=== PATIENT | female | born 1960 | race Caucasian/White ===

== ENCOUNTER 2017-09-28 11:57 | Inpatient (IN) | payer OTHER ==
[~2017-09-28] VITALS: Ht 175.3 cm; Wt 108.8 kg
[2017-09-28 14:04] LABS: ALBUMIN 2.9 g/dL (3.4-5.0); ANION GAP 11 mmol/L (5-15); CHLORIDE 96 mmol/L (98-107)
[2017-09-28 14:09] LABS: ALANINE AMINOTRANSFERASE 154 U/L (12-78); ALKALINE PHOSPHATASE 564 U/L (45-117); BILIRUBIN,TOTAL 10.4 mg/dL (0.2-1.0); CREATININE 1.04 mg/dL (0.55-1.02); TOTAL PROTEIN 6.4 g/dL (6.4-8.2)
[2017-09-28 14:14] LABS: MEAN CORPUSCULAR HEMOGLOBIN 29.6 pg (27.0-34.8); MEAN CORPUSCULAR HGB CONC 34.3 g/dL (32.4-35.8); MEAN CORPUSCULAR VOLUME 86.2 fL (80-100); MEAN PLATELET VOLUME 9.2 fL (7.4-10.4); PLATELET COUNT 59 x10^3/uL (130-400); RED BLOOD COUNT 4.66 x10^6/uL (3.82-5.3); RED CELL DISTRIBUTION WIDTH 16.2 % (9.6-15.2)
[2017-09-28 14:15] LABS: MD YES
[2017-09-28 14:59] LABS: BAND#(MANUAL) 0.94 x10^3/uL; BANDS%(MANUAL) 4 % (0-7); LYMPH#(MANUAL) 4.45 x10^3/uL (1-3.4); LYMPHS% (MANUAL) 19 % (22-44); METAMYELOCYTES# (MANUAL) 0.23 x10^3/uL (0-0); METAMYELOCYTES% (MANUAL) 1 % (0-1); MONOS#(MANUAL) 0.47 x10^3/uL (0.3-2.7); MONOS% (MANUAL) 2 % (2-9); MYELOCYTES# (MANUAL) 0.23 x10^3/uL (0-0); MYELOCYTES% (MANUAL) 1 % (0-0); REACTIVE LYMPHS % (MANUAL) 3 % (0-0); SEG#(MANUAL) 7.96 x10^3/uL (1.8-6.8); SEGS% (MANUAL) 34 % (42-75)
[2017-09-28 15:01] LABS: MICROSCOPIC INDICATED
[2017-09-28 15:02] LABS: CULTURE INDICATED? YES
[2017-09-28 15:04] LABS: NRBC % (MANUAL) 5 % (0-1); OTHER CELLS # (MANUAL) 8.42 x10^3/uL (0-0); OTHER CELLS % (MANUAL) 36 % (0-0)
[2017-09-28 15:07] LABS: ANISOCYTOSIS 1+
[2017-09-28 15:08] LABS: <PLATELET ESTIMATE> DECREASED; <PLT MORPHOLOGY> NORMAL PLT MORPH; POLYCHROMASIA 1+
[2017-09-28] MEDS ORDERED: OMNIPAQUE 350 MG/ML, 100ML BOTTLE ONE (17:14)
[2017-09-28] MEDS ORDERED: hydrALAzine 20 MG/ML, 1ML IVPush PRN (19:30)
[2017-09-28] MEDS ORDERED: ENALAPRILAT 1.25 MG/ML, 2ML IVPush PRN (19:30)
[2017-09-28] MEDS ORDERED: DOCUSATE 100 MG CAPSULE PO PRN (19:30)
[2017-09-28] MEDS ORDERED: OXYcodone IR 5MG TABLET PO PRN (19:30)
[2017-09-28] MEDS ORDERED: BISACODYL 10 MG SUPP PR PRN (19:30)
[2017-09-28 19:56] LABS: INTERNATIONAL NORMALIZED RATIO 1.08 (0.93-1.1); PROTHROMBIN TIME 11.2 Seconds (9.6-11.5)
[2017-09-28] MEDS ORDERED: CEFTRIAXONE PMX 1GM/50ML 50 ML IV SCH (20:00)
[2017-09-28] MEDS: SODIUM CHLORIDE 0.9% 1,000 ML IV SCH (22:07)
[2017-09-28 22:15] VITALS: BP 151/88
[2017-09-29 00:15] LABS: AMPHETAMINE SCREEN, URINE Negative (Negative); BARBITURATE SCREEN, URINE Negative (Negative); BENZODIAZEPINE SCREEN, URINE Negative (Negative); CANNABINOID SCREEN, URINE Negative (Negative); COCAINE SCREEN, URINE Negative (Negative); METHADONE SCREEN, URINE Negative (Negative); OPIATE SCREEN, URINE Negative (Negative)
[2017-09-29 04:29] VITALS: BP 120/75
[2017-09-29 04:58] LABS: ALBUMIN 2.5 g/dL (3.4-5.0); ANION GAP 9 mmol/L (5-15); CALCIUM 9.9 mg/dL (8.5-10.1); CHLORIDE 99 mmol/L (98-107)
[2017-09-29 05:00] LABS: MEAN CORPUSCULAR HEMOGLOBIN 29.5 pg (27.0-34.8); MEAN CORPUSCULAR HGB CONC 34.4 g/dL (32.4-35.8); MEAN CORPUSCULAR VOLUME 85.9 fL (80-100); RED BLOOD COUNT 4.25 x10^6/uL (3.82-5.3); RED CELL DISTRIBUTION WIDTH 16.1 % (9.6-15.2)
[2017-09-29 05:02] LABS: ALANINE AMINOTRANSFERASE 132 U/L (12-78); ALKALINE PHOSPHATASE 487 U/L (45-117); BILIRUBIN,TOTAL 9.5 mg/dL (0.2-1.0); CREATININE 0.93 mg/dL (0.55-1.02); TOTAL PROTEIN 5.5 g/dL (6.4-8.2)
[2017-09-29 05:46] LABS: MD YES
[2017-09-29 05:48] LABS: PLATELET COUNT 41 x10^3/uL (130-400)
[2017-09-29 05:51] LABS: BAND#(MANUAL) 1.03 x10^3/uL; BANDS%(MANUAL) 7 % (0-7); LYMPH#(MANUAL) 3.09 x10^3/uL (1-3.4); LYMPHS% (MANUAL) 21 % (22-44); MONOS#(MANUAL) 0.59 x10^3/uL (0.3-2.7); MONOS% (MANUAL) 4 % (2-9); SEG#(MANUAL) 4.12 x10^3/uL (1.8-6.8); SEGS% (MANUAL) 28 % (42-75)
[2017-09-29 05:52] LABS: NRBC % (MANUAL) 3 % (0-1); OTHER CELLS # (MANUAL) 5.88 x10^3/uL (0-0); OTHER CELLS % (MANUAL) 40 % (0-0)
[2017-09-29 05:53] LABS: <PLATELET ESTIMATE> DECREASED; <PLT MORPHOLOGY> NORMAL PLT MORPH; ANISOCYTOSIS 1+; POLYCHROMASIA 1+
[2017-09-29] MEDS: SODIUM CHLORIDE 0.9% 1,000 ML IV SCH ×4 (06:27→20:03)
[2017-09-29 07:21] VITALS: BP 118/66
[2017-09-29] MEDS ORDERED: LIDOCAINE-MPF 2% ,5ML ONE (08:50)
[2017-09-29] MEDS ORDERED: FLUMAZENIL 0.1 MG/1 ML, 5ML ONE (09:36)
[2017-09-29] MEDS ORDERED: MIDAZOLAM 1 MG/ML, 5ML ONE (09:36)
[2017-09-29] MEDS ORDERED: NALOXONE 1 MG/ML, 2ML ONE (09:36)
[2017-09-29] MEDS ORDERED: FENTANYL PF 100 MCG/2ML ONE (09:36)
[2017-09-29 13:13] VITALS: BP 111/70
[2017-09-29] MEDS ORDERED: GADOBUTROL 10 MMOL/10 ML VIAL ONE (14:34)
[2017-09-29] MEDS ORDERED: ALLOPURINOL 300 MG TABLET PO ONE (18:00)
[2017-09-29] MEDS ORDERED: DEXAMETHASONE 20 MG in SODIUM CHLORIDE 0.9% 50 ML IV ONE (18:00)
[2017-09-29 19:09] VITALS: BP 123/73
[2017-09-30 01:39] VITALS: BP 120/71
[2017-09-30] MEDS: SODIUM CHLORIDE 0.9% 1,000 ML IV SCH ×2 (02:31→09:01)
[2017-09-30 04:43] LABS: ALBUMIN 2.4 g/dL (3.4-5.0); ANION GAP 10 mmol/L (5-15); CALCIUM 9.8 mg/dL (8.5-10.1); CHLORIDE 102 mmol/L (98-107)
[2017-09-30 04:47] LABS: MEAN CORPUSCULAR HEMOGLOBIN 29.6 pg (27.0-34.8); MEAN CORPUSCULAR HGB CONC 34.4 g/dL (32.4-35.8); RED BLOOD COUNT 3.89 x10^6/uL (3.82-5.3); RED CELL DISTRIBUTION WIDTH 16.4 % (9.6-15.2)
[2017-09-30 04:49] LABS: ALANINE AMINOTRANSFERASE 133 U/L (12-78); ALKALINE PHOSPHATASE 507 U/L (45-117); BILIRUBIN, DIRECT 7.7 mg/dL (0.1-0.2); BILIRUBIN,TOTAL 9.5 mg/dL (0.2-1.0); CREATININE 0.92 mg/dL (0.55-1.02); TOTAL PROTEIN 5.3 g/dL (6.4-8.2)
[2017-09-30 05:00] LABS: PLATELET COUNT 43 x10^3/uL (130-400)
[2017-09-30 05:59] LABS: MD YES
[2017-09-30 06:02] LABS: BAND#(MANUAL) 1.09 x10^3/uL; BANDS%(MANUAL) 9 % (0-7); LYMPH#(MANUAL) 1.94 x10^3/uL (1-3.4); LYMPHS% (MANUAL) 16 % (22-44); METAMYELOCYTES# (MANUAL) 0.12 x10^3/uL (0-0); METAMYELOCYTES% (MANUAL) 1 % (0-1); MONOS#(MANUAL) 0.73 x10^3/uL (0.3-2.7); MONOS% (MANUAL) 6 % (2-9)
[2017-09-30 06:03] LABS: NRBC % (MANUAL) 6 % (0-1); OTHER CELLS # (MANUAL) 4.36 x10^3/uL (0-0); SEG#(MANUAL) 3.87 x10^3/uL (1.8-6.8); SEGS% (MANUAL) 32 % (42-75)
[2017-09-30 06:05] LABS: ANISOCYTOSIS 1+; OTHER CELLS % (MANUAL) 36 % (0-0); POLYCHROMASIA 1+
[2017-09-30 06:06] LABS: <PLATELET ESTIMATE> DECREASED; <PLT MORPHOLOGY> NORMAL PLT MORPH
[2017-09-30 07:23] VITALS: BP 116/74
[2017-09-30] MEDS ORDERED: DEXAMETHASONE 20 MG in SODIUM CHLORIDE 0.9% 50 ML IV ONE (09:00)
[2017-09-30] MEDS ORDERED: DEXAMETHASONE 4 MG/ML, 5ML IVPush ONE (09:00)
[2017-09-30] MEDS: ALLOPURINOL 300 MG TABLET PO SCH (09:02)
[2017-09-30] MEDS: DIPHENHYDRAMINE 25 MG CAPSULE PO PRN ×2 (12:08→19:50)
[2017-09-30 13:53] VITALS: BP 118/72
[2017-09-30 19:29] VITALS: BP 124/79
[2017-10-01 00:24] VITALS: BP 131/77
[2017-10-01] MEDS: SODIUM CHLORIDE 0.9% 1,000 ML IV SCH ×4 (01:12→22:42)
[2017-10-01 04:39] LABS: ALANINE AMINOTRANSFERASE 125 U/L (12-78); ALBUMIN 2.3 g/dL (3.4-5.0); ANION GAP 11 mmol/L (5-15); CALCIUM 8.2 mg/dL (8.5-10.1); CHLORIDE 102 mmol/L (98-107); CREATININE 0.81 mg/dL (0.55-1.02)
[2017-10-01 04:41] LABS: ALKALINE PHOSPHATASE 503 U/L (45-117); TOTAL PROTEIN 5.2 g/dL (6.4-8.2)
[2017-10-01 05:43] LABS: MEAN CORPUSCULAR HEMOGLOBIN 29.8 pg (27.0-34.8); MEAN CORPUSCULAR HGB CONC 34.6 g/dL (32.4-35.8); MEAN CORPUSCULAR VOLUME 86.2 fL (80-100); MEAN PLATELET VOLUME 10.2 fL (7.4-10.4); RED BLOOD COUNT 3.78 x10^6/uL (3.82-5.3)
[2017-10-01 05:45] LABS: PLATELET COUNT 40 x10^3/uL (130-400)
[2017-10-01 05:46] LABS: MD YES
[2017-10-01 05:47] LABS: BAND#(MANUAL) 0.68 x10^3/uL; BANDS%(MANUAL) 8 % (0-7); MONOS#(MANUAL) 0.43 x10^3/uL (0.3-2.7); MONOS% (MANUAL) 5 % (2-9); NRBC % (MANUAL) 5 % (0-1)
[2017-10-01 05:49] LABS: LYMPH#(MANUAL) 2.04 x10^3/uL (1-3.4); LYMPHS% (MANUAL) 24 % (22-44); OTHER CELLS # (MANUAL) 1.87 x10^3/uL (0-0); SEG#(MANUAL) 3.49 x10^3/uL (1.8-6.8); SEGS% (MANUAL) 41 % (42-75)
[2017-10-01 05:50] LABS: <PLATELET ESTIMATE> DECREASED; OTHER CELLS % (MANUAL) 22 % (0-0)
[2017-10-01 05:51] LABS: <PLT MORPHOLOGY> NORMAL PLT MORPH; ANISOCYTOSIS 1+; POLYCHROMASIA 1+
[2017-10-01 07:23] VITALS: BP 114/73
[2017-10-01] MEDS: ALLOPURINOL 300 MG TABLET PO SCH (07:31)
[2017-10-01 14:01] VITALS: BP 101/62
[2017-10-01 19:16] VITALS: BP 115/72
[2017-10-02 04:22] VITALS: BP 106/67
[2017-10-02 05:14] LABS: MEAN CORPUSCULAR HEMOGLOBIN 29.8 pg (27.0-34.8); MEAN CORPUSCULAR HGB CONC 34.6 g/dL (32.4-35.8); MEAN CORPUSCULAR VOLUME 86.3 fL (80-100); MEAN PLATELET VOLUME 9.6 fL (7.4-10.4); RED BLOOD COUNT 3.49 x10^6/uL (3.82-5.3); RED CELL DISTRIBUTION WIDTH 16.4 % (9.6-15.2)
[2017-10-02 05:22] LABS: ALBUMIN 2.4 g/dL (3.4-5.0); ANION GAP 6 mmol/L (5-15); CALCIUM 7.8 mg/dL (8.5-10.1); CHLORIDE 107 mmol/L (98-107)
[2017-10-02 05:25] LABS: ALANINE AMINOTRANSFERASE 101 U/L (12-78); ALKALINE PHOSPHATASE 445 U/L (45-117); BILIRUBIN,TOTAL 3.9 mg/dL (0.2-1.0); CREATININE 0.69 mg/dL (0.55-1.02); TOTAL PROTEIN 5.4 g/dL (6.4-8.2)
[2017-10-02] MEDS: SODIUM CHLORIDE 0.9% 1,000 ML IV SCH ×2 (05:25→09:04)
[2017-10-02 05:31] LABS: PLATELET COUNT 39 x10^3/uL (130-400)
[2017-10-02 05:39] LABS: MD YES
[2017-10-02 06:18] LABS: BAND#(MANUAL) 0.09 x10^3/uL; BANDS%(MANUAL) 3 % (0-7); LYMPH#(MANUAL) 0.75 x10^3/uL (1-3.4); LYMPHS% (MANUAL) 25 % (22-44); METAMYELOCYTES# (MANUAL) 0.03 x10^3/uL (0-0); METAMYELOCYTES% (MANUAL) 1 % (0-1); MONOS#(MANUAL) 0.09 x10^3/uL (0.3-2.7); MONOS% (MANUAL) 3 % (2-9); NRBC % (MANUAL) 3 % (0-1); OTHER CELLS # (MANUAL) 0.03 x10^3/uL (0-0); SEG#(MANUAL) 2.01 x10^3/uL (1.8-6.8); SEGS% (MANUAL) 67 % (42-75)
[2017-10-02 06:21] LABS: OTHER CELLS % (MANUAL) 1 % (0-0)
[2017-10-02 06:22] LABS: <PLATELET ESTIMATE> DECREASED; <PLT MORPHOLOGY> NORMAL PLT MORPH; ANISOCYTOSIS 1+; POLYCHROMASIA 1+
[2017-10-02 06:48] VITALS: BP 105/67
[2017-10-02] MEDS: ALLOPURINOL 300 MG TABLET PO SCH ×2 (09:04→20:53)
[2017-10-02 12:20] VITALS: BP 101/65
[2017-10-02 19:11] VITALS: BP 96/62
[2017-10-03 01:26] VITALS: BP 104/66
[2017-10-03] MEDS: SODIUM CHLORIDE 0.9% 1,000 ML IV SCH ×3 (01:58→17:34)
[2017-10-03 04:30] LABS: MEAN CORPUSCULAR HEMOGLOBIN 30.5 pg (27.0-34.8); MEAN CORPUSCULAR HGB CONC 35.2 g/dL (32.4-35.8); MEAN CORPUSCULAR VOLUME 86.8 fL (80-100); MEAN PLATELET VOLUME 10.5 fL (7.4-10.4); RED BLOOD COUNT 3.09 x10^6/uL (3.82-5.3); RED CELL DISTRIBUTION WIDTH 16.6 % (9.6-15.2)
[2017-10-03 04:41] LABS: PLATELET COUNT 25 x10^3/uL (130-400)
[2017-10-03 04:42] LABS: ALBUMIN 2.2 g/dL (3.4-5.0); ANION GAP 4 mmol/L (5-15); CALCIUM 8.2 mg/dL (8.5-10.1); CHLORIDE 112 mmol/L (98-107)
[2017-10-03 04:45] LABS: ALANINE AMINOTRANSFERASE 82 U/L (12-78); ALKALINE PHOSPHATASE 348 U/L (45-117); BILIRUBIN,TOTAL 2.5 mg/dL (0.2-1.0); CREATININE 0.64 mg/dL (0.55-1.02)
[2017-10-03 04:51] LABS: MD YES
[2017-10-03 04:55] LABS: BAND#(MANUAL) 0.05 x10^3/uL; BANDS%(MANUAL) 2 % (0-7); LYMPH#(MANUAL) 1.27 x10^3/uL (1-3.4); LYMPHS% (MANUAL) 53 % (22-44); METAMYELOCYTES# (MANUAL) 0.02 x10^3/uL (0-0); METAMYELOCYTES% (MANUAL) 1 % (0-1); MONOS#(MANUAL) 0.22 x10^3/uL (0.3-2.7); MONOS% (MANUAL) 9 % (2-9); SEG#(MANUAL) 0.84 x10^3/uL (1.8-6.8); SEGS% (MANUAL) 35 % (42-75)
[2017-10-03 04:56] LABS: <PLATELET ESTIMATE> DECREASED; <PLT MORPHOLOGY> NORMAL PLT MORPH; POLYCHROMASIA 1+
[2017-10-03 07:09] VITALS: BP 103/68
[2017-10-03] MEDS: ALLOPURINOL 300 MG TABLET PO SCH ×2 (09:15→20:25)
[2017-10-03 12:35] VITALS: BP 104/67
[2017-10-03 20:06] VITALS: BP 117/77
[2017-10-04 00:07] VITALS: BP 105/68
[2017-10-04] MEDS: SODIUM CHLORIDE 0.9% 1,000 ML IV SCH ×4 (00:07→20:50)
[2017-10-04 04:45] LABS: ALBUMIN 2.3 g/dL (3.4-5.0); ANION GAP 5 mmol/L (5-15); CALCIUM 8.5 mg/dL (8.5-10.1); CHLORIDE 112 mmol/L (98-107)
[2017-10-04 04:49] LABS: % IRON SATURATION 16 % (20-55); ALANINE AMINOTRANSFERASE 103 U/L (12-78); ALKALINE PHOSPHATASE 379 U/L (45-117); BILIRUBIN,TOTAL 1.8 mg/dL (0.2-1.0); CREATININE 0.64 mg/dL (0.55-1.02); IRON LEVEL 60 mcg/dL (50-170); TOTAL IRON BINDING CAPACITY 387 mcg/dL (250-450); TOTAL PROTEIN 5.2 g/dL (6.4-8.2)
[2017-10-04 04:51] LABS: MEAN CORPUSCULAR HEMOGLOBIN 29.8 pg (27.0-34.8); MEAN CORPUSCULAR HGB CONC 34.3 g/dL (32.4-35.8); MEAN CORPUSCULAR VOLUME 86.8 fL (80-100); RED BLOOD COUNT 3.02 x10^6/uL (3.82-5.3); RED CELL DISTRIBUTION WIDTH 16.3 % (9.6-15.2)
[2017-10-04 05:45] LABS: MEAN PLATELET VOLUME 9.6 fL (7.4-10.4)
[2017-10-04 05:46] LABS: MD YES; PLATELET COUNT 36 x10^3/uL (130-400)
[2017-10-04 05:56] LABS: BAND#(MANUAL) 0.03 x10^3/uL; BANDS%(MANUAL) 2 % (0-7); LYMPH#(MANUAL) 0.73 x10^3/uL (1-3.4); LYMPHS% (MANUAL) 56 % (22-44); METAMYELOCYTES# (MANUAL) 0.01 x10^3/uL (0-0); METAMYELOCYTES% (MANUAL) 1 % (0-1); MONOS#(MANUAL) 0.04 x10^3/uL (0.3-2.7); MONOS% (MANUAL) 3 % (2-9); NRBC % (MANUAL) 1 % (0-1); OTHER CELLS # (MANUAL) 0.01 x10^3/uL (0-0); OTHER CELLS % (MANUAL) 1 % (0-0); SEG#(MANUAL) 0.48 x10^3/uL (1.8-6.8); SEGS% (MANUAL) 37 % (42-75)
[2017-10-04 05:57] LABS: ANISOCYTOSIS 1+; POLYCHROMASIA 1+
[2017-10-04 05:58] LABS: <PLATELET ESTIMATE> DECREASED; <PLT MORPHOLOGY> NORMAL PLT MORPH
[2017-10-04 08:05] VITALS: BP 107/67
[2017-10-04] MEDS: ALLOPURINOL 300 MG TABLET PO SCH ×2 (09:59→20:06)
[2017-10-04 13:59] VITALS: BP 115/73
[2017-10-04 20:09] VITALS: BP 104/69
[2017-10-05 01:00] VITALS: BP 102/64
[2017-10-05] MEDS: SODIUM CHLORIDE 0.9% 1,000 ML IV SCH ×3 (03:20→16:25)
[2017-10-05 04:29] LABS: ALBUMIN 2.4 g/dL (3.4-5.0); ANION GAP 7 mmol/L (5-15); CALCIUM 8.7 mg/dL (8.5-10.1); CHLORIDE 109 mmol/L (98-107)
[2017-10-05 04:30] LABS: MEAN CORPUSCULAR HEMOGLOBIN 30.2 pg (27.0-34.8); MEAN CORPUSCULAR HGB CONC 34.6 g/dL (32.4-35.8); MEAN CORPUSCULAR VOLUME 87.2 fL (80-100); MEAN PLATELET VOLUME 8.9 fL (7.4-10.4); RED BLOOD COUNT 2.99 x10^6/uL (3.82-5.3); RED CELL DISTRIBUTION WIDTH 16.2 % (9.6-15.2)
[2017-10-05 04:33] LABS: ALANINE AMINOTRANSFERASE 122 U/L (12-78); ALKALINE PHOSPHATASE 374 U/L (45-117); BILIRUBIN,TOTAL 1.9 mg/dL (0.2-1.0); CREATININE 0.71 mg/dL (0.55-1.02); TOTAL PROTEIN 5.4 g/dL (6.4-8.2)
[2017-10-05 04:34] LABS: PLATELET COUNT 42 x10^3/uL (130-400)
[2017-10-05 05:04] LABS: MD YES
[2017-10-05 05:05] LABS: LYMPH#(MANUAL) 0.75 x10^3/uL (1-3.4); LYMPHS% (MANUAL) 68 % (22-44); SEG#(MANUAL) 0.35 x10^3/uL (1.8-6.8); SEGS% (MANUAL) 32 % (42-75)
[2017-10-05 05:06] LABS: <PLATELET ESTIMATE> DECREASED; <PLT MORPHOLOGY> NORMAL PLT MORPH; ANISOCYTOSIS 1+; POLYCHROMASIA 1+
[2017-10-05 08:15] VITALS: BP 117/79
[2017-10-05] MEDS: ALLOPURINOL 300 MG TABLET PO SCH ×2 (09:11→20:30)
[2017-10-05] MEDS: VALACYCLOVIR 500MG TABLET PO SCH (12:41)
[2017-10-05] MEDS: ONDANSETRON ODT 4 MG PO PRN (12:41)
[2017-10-05] MEDS: FLUCONAZOLE 200 MG TABLET PO SCH (12:41)
[2017-10-05] MEDS: LEVOFLOXACIN 500 MG TABLET PO SCH (12:41)
[2017-10-05 13:34] VITALS: BP 106/71
[2017-10-05 19:58] VITALS: BP 119/77
[2017-10-06] VITALS (10 sets, daily range): BP systolic 114–154; BP diastolic 70–85
[2017-10-06] MEDS: SODIUM CHLORIDE 0.9% 1,000 ML IV SCH ×3 (01:45→23:46)
[2017-10-06 04:35] LABS: MEAN CORPUSCULAR HEMOGLOBIN 29.9 pg (27.0-34.8); MEAN CORPUSCULAR HGB CONC 34.2 g/dL (32.4-35.8); MEAN CORPUSCULAR VOLUME 87.5 fL (80-100); MEAN PLATELET VOLUME 8.9 fL (7.4-10.4); RED CELL DISTRIBUTION WIDTH 16.3 % (9.6-15.2)
[2017-10-06 04:45] LABS: ALBUMIN 2.4 g/dL (3.4-5.0); ANION GAP 5 mmol/L (5-15); CALCIUM 8.8 mg/dL (8.5-10.1); CHLORIDE 110 mmol/L (98-107)
[2017-10-06 04:47] LABS: MD YES; PLATELET COUNT 43 x10^3/uL (130-400)
[2017-10-06 04:49] LABS: ALANINE AMINOTRANSFERASE 113 U/L (12-78); ALKALINE PHOSPHATASE 363 U/L (45-117); BILIRUBIN,TOTAL 1.7 mg/dL (0.2-1.0); CREATININE 0.65 mg/dL (0.55-1.02); TOTAL PROTEIN 5.5 g/dL (6.4-8.2)
[2017-10-06 04:53] LABS: <PLATELET ESTIMATE> DECREASED; <PLT MORPHOLOGY> NORMAL PLT MORPH; ANISOCYTOSIS 1+; EOS#(MANUAL) 0.04 x10^3/uL (0.0-0.4); EOS% (MANUAL) 4 % (1-7); LYMPH#(MANUAL) 0.55 x10^3/uL (1-3.4); LYMPHS% (MANUAL) 50 % (22-44); MONOS#(MANUAL) 0.09 x10^3/uL (0.3-2.7); MONOS% (MANUAL) 8 % (2-9); NRBC % (MANUAL) 4 % (0-1); POLYCHROMASIA 1+; SEG#(MANUAL) 0.42 x10^3/uL (1.8-6.8); SEGS% (MANUAL) 38 % (42-75)
[2017-10-06] MEDS ORDERED: HYDROCORTISONE 100 MG INJ. IVPush ONE (10:00)
[2017-10-06] MEDS: ALLOPURINOL 300 MG TABLET PO SCH ×2 (10:23→20:03)
[2017-10-06] MEDS: VALACYCLOVIR 500MG TABLET PO SCH (12:00)
[2017-10-06] MEDS: FLUCONAZOLE 200 MG TABLET PO SCH (12:00)
[2017-10-06] MEDS: LEVOFLOXACIN 500 MG TABLET PO SCH (12:00)
[2017-10-06] MEDS ORDERED: LIDOCAINE-MPF 2% ,5ML ONE (15:06)
[2017-10-06] MEDS ORDERED: FENTANYL PF 100 MCG/2ML ONE ×2 (15:46→16:10)
[2017-10-06] MEDS ORDERED: FLUMAZENIL 0.1 MG/1 ML, 5ML ONE (15:47)
[2017-10-06] MEDS ORDERED: MIDAZOLAM 1 MG/ML, 5ML ONE ×2 (15:47→16:10)
[2017-10-06] MEDS ORDERED: NALOXONE 1 MG/ML, 2ML ONE (15:47)
[2017-10-07] MEDS ORDERED: LIDOCAINE/PRILOCAINE CRM W/TEG 5GM TP ONE (05:00)
[2017-10-07] MEDS: SODIUM CHLORIDE 0.9% 1,000 ML IV SCH ×2 (06:00→11:31)
[2017-10-07 06:43] LABS: ALANINE AMINOTRANSFERASE 108 U/L (12-78); ALBUMIN 2.5 g/dL (3.4-5.0); ANION GAP 8 mmol/L (5-15); CALCIUM 8.1 mg/dL (8.5-10.1); CHLORIDE 110 mmol/L (98-107)
[2017-10-07 06:44] LABS: MEAN CORPUSCULAR HEMOGLOBIN 29.5 pg (27.0-34.8); MEAN CORPUSCULAR HGB CONC 33.6 g/dL (32.4-35.8); MEAN CORPUSCULAR VOLUME 87.6 fL (80-100); RED BLOOD COUNT 2.74 x10^6/uL (3.82-5.3); RED CELL DISTRIBUTION WIDTH 16.4 % (9.6-15.2)
[2017-10-07 06:46] LABS: ALKALINE PHOSPHATASE 340 U/L (45-117); BILIRUBIN,TOTAL 1.4 mg/dL (0.2-1.0); CREATININE 0.62 mg/dL (0.55-1.02); TOTAL PROTEIN 5.4 g/dL (6.4-8.2)
[2017-10-07 06:51] LABS: MEAN PLATELET VOLUME 8.4 fL (7.4-10.4); PLATELET COUNT 78 x10^3/uL (130-400)
[2017-10-07 06:56] LABS: MD YES
[2017-10-07 06:59] LABS: LYMPH#(MANUAL) 0.44 x10^3/uL (1-3.4); LYMPHS% (MANUAL) 34 % (22-44); MONOS#(MANUAL) 0.23 x10^3/uL (0.3-2.7); MONOS% (MANUAL) 18 % (2-9); SEG#(MANUAL) 0.62 x10^3/uL (1.8-6.8); SEGS% (MANUAL) 48 % (42-75)
[2017-10-07 07:00] LABS: <PLATELET ESTIMATE> DECREASED; <PLT MORPHOLOGY> NORMAL PLT MORPH; ANISOCYTOSIS 1+; POLYCHROMASIA 1+
[2017-10-07 07:47] VITALS: BP 115/72
[2017-10-07] MEDS: ALLOPURINOL 300 MG TABLET PO SCH ×2 (09:09→21:31)
[2017-10-07] MEDS: ONDANSETRON 16 MG in SODIUM CHLORIDE 0.9% 50 ML IVPB SCH (10:25)
[2017-10-07] MEDS: DEXAMETHASONE 4 MG TABLET PO SCH (10:25)
[2017-10-07] MEDS ORDERED: PROCHLORPERAZINE 10MG TABLET PO PRN (10:30)
[2017-10-07] MEDS ORDERED: LORazepam 1MG TABLET PO PRN (10:30)
[2017-10-07] MEDS ORDERED: LORazepam INTENSOL 2 MG/ML SL PRN (10:30)
[2017-10-07] MEDS ORDERED: LORazepam 2 MG/ML, 1ML IV PRN (10:30)
[2017-10-07] MEDS ORDERED: PROCHLORPERAZINE 5 MG/ML, 2ML IV PRN (10:30)
[2017-10-07] MEDS: LEVOFLOXACIN 500 MG TABLET PO SCH (11:15)
[2017-10-07] MEDS: VALACYCLOVIR 500MG TABLET PO SCH (11:15)
[2017-10-07] MEDS: FLUCONAZOLE 200 MG TABLET PO SCH (11:15)
[2017-10-07] MEDS: SODIUM CHLORIDE 0.9% IVPB SCH (11:20)
[2017-10-07] MEDS: MESNA IVPB SCH (11:20)
[2017-10-07] MEDS: SODIUM CHLORIDE 0.9% IV SCH ×2 (11:22→23:13)
[2017-10-07] MEDS: CYCLOPHOSPHAMIDE IV SCH ×2 (11:22→23:13)
[2017-10-07 11:32] VITALS: BP 116/71
[2017-10-07] MEDS ORDERED: ACETAMINOPHEN 325 MG/10.15 ML UDC PO PRN (14:00)
[2017-10-07] MEDS ORDERED: ACETAMINOPHEN 650 MG/20.3 ML UDC ONE (19:56)
[2017-10-07 20:08] VITALS: BP 143/79
[2017-10-08 01:56] VITALS: BP 129/76
[2017-10-08 05:57] LABS: MEAN CORPUSCULAR HEMOGLOBIN 30.3 pg (27.0-34.8); MEAN CORPUSCULAR HGB CONC 34.2 g/dL (32.4-35.8); MEAN CORPUSCULAR VOLUME 88.6 fL (80-100); MEAN PLATELET VOLUME 8.9 fL (7.4-10.4); PLATELET COUNT 100 x10^3/uL (130-400); RED BLOOD COUNT 2.78 x10^6/uL (3.82-5.3)
[2017-10-08] MEDS: SODIUM CHLORIDE 0.9% 1,000 ML IV SCH ×2 (05:59→22:29)
[2017-10-08 06:08] LABS: ALANINE AMINOTRANSFERASE 104 U/L (12-78); ALBUMIN 2.8 g/dL (3.4-5.0); ANION GAP 7 mmol/L (5-15); CALCIUM 8.7 mg/dL (8.5-10.1); CHLORIDE 110 mmol/L (98-107)
[2017-10-08 06:11] LABS: ALKALINE PHOSPHATASE 351 U/L (45-117); BILIRUBIN,TOTAL 1.2 mg/dL (0.2-1.0); CREATININE 0.69 mg/dL (0.55-1.02)
[2017-10-08 06:22] LABS: MD YES
[2017-10-08 06:29] LABS: BAND#(MANUAL) 0.03 x10^3/uL; BANDS%(MANUAL) 2 % (0-7); LYMPH#(MANUAL) 0.24 x10^3/uL (1-3.4); LYMPHS% (MANUAL) 14 % (22-44); MONOS#(MANUAL) 0.03 x10^3/uL (0.3-2.7); MONOS% (MANUAL) 2 % (2-9); SEG#(MANUAL) 1.39 x10^3/uL (1.8-6.8); SEGS% (MANUAL) 82 % (42-75)
[2017-10-08 06:30] LABS: <PLATELET ESTIMATE> DECREASED; <PLT MORPHOLOGY> NORMAL PLT MORPH; ANISOCYTOSIS 1+; POLYCHROMASIA 1+
[2017-10-08 08:15] VITALS: BP 104/63
[2017-10-08] MEDS: ACETAMINOPHEN 325 MG TABLET PO PRN (09:59)
[2017-10-08] MEDS: ONDANSETRON 16 MG in SODIUM CHLORIDE 0.9% 50 ML IVPB SCH (11:01)
[2017-10-08] MEDS: MESNA IVPB SCH (11:01)
[2017-10-08] MEDS: SODIUM CHLORIDE 0.9% IVPB SCH (11:01)
[2017-10-08] MEDS: DEXAMETHASONE 4 MG TABLET PO SCH (11:01)
[2017-10-08] MEDS: ALLOPURINOL 300 MG TABLET PO SCH (11:01)
[2017-10-08] MEDS: CYCLOPHOSPHAMIDE IV SCH (11:45)
[2017-10-08] MEDS: SODIUM CHLORIDE 0.9% IV SCH (11:45)
[2017-10-08] MEDS: FLUCONAZOLE 200 MG TABLET PO SCH (11:51)
[2017-10-08] MEDS: VALACYCLOVIR 500MG TABLET PO SCH (11:51)
[2017-10-08] MEDS: LEVOFLOXACIN 500 MG TABLET PO SCH (11:52)
[2017-10-08 14:04] VITALS: BP 117/75
[2017-10-09] MEDS: ACETAMINOPHEN 325 MG TABLET PO PRN ×3 (00:35→20:55)
[2017-10-09] MEDS: SODIUM CHLORIDE 0.9% IV SCH ×2 (00:36→12:50)
[2017-10-09] MEDS: CYCLOPHOSPHAMIDE IV SCH ×2 (00:36→12:50)
[2017-10-09 00:58] VITALS: BP 128/83
[2017-10-09] MEDS: ALLOPURINOL 300 MG TABLET PO SCH ×3 (01:31→21:45)
[2017-10-09 06:23] VITALS: BP 143/80
[2017-10-09] MEDS: ONDANSETRON 2MG/ML, 2ML IVPush PRN (06:35)
[2017-10-09 06:38] LABS: MEAN CORPUSCULAR HEMOGLOBIN 29.7 pg (27.0-34.8); MEAN CORPUSCULAR HGB CONC 33.8 g/dL (32.4-35.8); MEAN CORPUSCULAR VOLUME 88.1 fL (80-100); MEAN PLATELET VOLUME 9.2 fL (7.4-10.4); PLATELET COUNT 124 x10^3/uL (130-400); RED BLOOD COUNT 2.83 x10^6/uL (3.82-5.3); RED CELL DISTRIBUTION WIDTH 16.7 % (9.6-15.2)
[2017-10-09 06:42] LABS: ALANINE AMINOTRANSFERASE 104 U/L (12-78); ALBUMIN 2.8 g/dL (3.4-5.0); ANION GAP 5 mmol/L (5-15); CALCIUM 8.4 mg/dL (8.5-10.1); CHLORIDE 112 mmol/L (98-107)
[2017-10-09 06:44] LABS: ALKALINE PHOSPHATASE 296 U/L (45-117); BILIRUBIN,TOTAL 1.1 mg/dL (0.2-1.0); TOTAL PROTEIN 5.9 g/dL (6.4-8.2)
[2017-10-09 07:26] LABS: BASOPHILS % (AUTO) 0 % (0-1); EOSINOPHILS % (AUTO) 0 % (1-7); LYMPHOCYTES # (AUTO) 0.22 x10^3/uL (1-3.4); LYMPHOCYTES % (AUTO) 9 % (22-44); MD SCAN; MONOCYTES # (AUTO) 0.11 x10^3/uL (0.2-0.8); MONOCYTES % (AUTO) 5 % (2-9); NEUTROPHILS # (AUTO) 2.11 x10^3/uL (1.8-6.8); NEUTROPHILS % (AUTO) 86 % (42-75)
[2017-10-09 07:47] VITALS: BP 128/81
[2017-10-09] MEDS ORDERED: METHOTREXATE/PF 2ML 12 MG in SODIUM CHLORIDE 0.9% 4.52 ML IT ONE (09:00)
[2017-10-09] MEDS: SODIUM CHLORIDE 0.9% IVPB SCH (11:43)
[2017-10-09] MEDS: MESNA IVPB SCH (11:43)
[2017-10-09] MEDS: ONDANSETRON 16 MG in SODIUM CHLORIDE 0.9% 50 ML IVPB SCH (11:43)
[2017-10-09] MEDS: FLUCONAZOLE 200 MG TABLET PO SCH (11:46)
[2017-10-09] MEDS: VALACYCLOVIR 500MG TABLET PO SCH (11:46)
[2017-10-09] MEDS: LEVOFLOXACIN 500 MG TABLET PO SCH (11:46)
[2017-10-09] MEDS: DEXAMETHASONE 4 MG TABLET PO SCH (11:47)
[2017-10-09 15:43] VITALS: BP 111/72
[2017-10-09] MEDS: POLYETHYLENE GLYCOL 17 GM PACKET PO PRN (15:55)
[2017-10-09] MEDS: SODIUM CHLORIDE 0.9% 1,000 ML IV SCH (15:55)
[2017-10-09 20:51] VITALS: BP 123/72
[2017-10-10] MEDS: CYCLOPHOSPHAMIDE IV SCH (00:49)
[2017-10-10] MEDS: SODIUM CHLORIDE 0.9% IV SCH (00:49)
[2017-10-10 00:54] VITALS: BP 116/65
[2017-10-10] MEDS: SODIUM CHLORIDE 0.9% 1,000 ML IV SCH ×2 (05:48→12:19)
[2017-10-10 06:35] LABS: ALANINE AMINOTRANSFERASE 110 U/L (12-78); ALBUMIN 2.7 g/dL (3.4-5.0); ANION GAP 6 mmol/L (5-15); CALCIUM 8.5 mg/dL (8.5-10.1); CHLORIDE 112 mmol/L (98-107); CREATININE 0.63 mg/dL (0.55-1.02)
[2017-10-10 06:37] LABS: ALKALINE PHOSPHATASE 269 U/L (45-117); BILIRUBIN,TOTAL 1.1 mg/dL (0.2-1.0); TOTAL PROTEIN 5.7 g/dL (6.4-8.2)
[2017-10-10 06:57] LABS: MD YES
[2017-10-10 07:18] LABS: MEAN CORPUSCULAR HEMOGLOBIN 29.8 pg (27.0-34.8); MEAN CORPUSCULAR HGB CONC 33.4 g/dL (32.4-35.8); MEAN CORPUSCULAR VOLUME 89.3 fL (80-100); MEAN PLATELET VOLUME 8.8 fL (7.4-10.4); PLATELET COUNT 129 x10^3/uL (130-400); RED BLOOD COUNT 2.72 x10^6/uL (3.82-5.3); RED CELL DISTRIBUTION WIDTH 17.9 % (9.6-15.2)
[2017-10-10 07:24] LABS: LYMPH#(MANUAL) 0.12 x10^3/uL (1-3.4); LYMPHS% (MANUAL) 6 % (22-44); MONOS#(MANUAL) 0.04 x10^3/uL (0.3-2.7); MONOS% (MANUAL) 2 % (2-9); SEG#(MANUAL) 1.84 x10^3/uL (1.8-6.8); SEGS% (MANUAL) 92 % (42-75)
[2017-10-10 07:25] LABS: <PLATELET ESTIMATE> DECREASED; <PLT MORPHOLOGY> NORMAL PLT MORPH; ANISOCYTOSIS 1+; POLYCHROMASIA 1+
[2017-10-10 07:45] VITALS: BP 115/71
[2017-10-10] MEDS: ACETAMINOPHEN 325 MG TABLET PO PRN ×2 (08:13→20:22)
[2017-10-10] MEDS ORDERED: PHARMACY INSTRUCTION MC SCH (09:00)
[2017-10-10] MEDS: ALLOPURINOL 300 MG TABLET PO SCH ×2 (10:55→21:38)
[2017-10-10] MEDS: ONDANSETRON 16 MG in SODIUM CHLORIDE 0.9% 50 ML IVPB SCH (10:55)
[2017-10-10] MEDS: DEXAMETHASONE 4 MG TABLET PO SCH (10:56)
[2017-10-10] MEDS: VALACYCLOVIR 500MG TABLET PO SCH (12:19)
[2017-10-10] MEDS: LEVOFLOXACIN 500 MG TABLET PO SCH (12:19)
[2017-10-10] MEDS: FLUCONAZOLE 200 MG TABLET PO SCH (12:19)
[2017-10-10] MEDS ORDERED: SODIUM CHLORIDE 0.9% IV ONE (13:00)
[2017-10-10] MEDS ORDERED: DOXORUBICIN IV ONE (13:00)
[2017-10-10 15:58] VITALS: BP 113/69
[2017-10-10] MEDS: POLYETHYLENE GLYCOL 17 GM PACKET PO PRN (17:11)
[2017-10-10 19:49] VITALS: BP 119/74
[2017-10-11] MEDS: SODIUM CHLORIDE 0.9% 1,000 ML IV SCH ×2 (00:31→14:49)
[2017-10-11 01:36] VITALS: BP 159/91
[2017-10-11 06:15] LABS: MEAN CORPUSCULAR HEMOGLOBIN 30.2 pg (27.0-34.8); MEAN CORPUSCULAR HGB CONC 33.9 g/dL (32.4-35.8); MEAN CORPUSCULAR VOLUME 89.2 fL (80-100); MEAN PLATELET VOLUME 8.6 fL (7.4-10.4); PLATELET COUNT 137 x10^3/uL (130-400); RED BLOOD COUNT 2.65 x10^6/uL (3.82-5.3); RED CELL DISTRIBUTION WIDTH 17.1 % (9.6-15.2)
[2017-10-11 06:26] LABS: ALANINE AMINOTRANSFERASE 93 U/L (12-78); ALBUMIN 2.6 g/dL (3.4-5.0); ANION GAP 7 mmol/L (5-15); CALCIUM 7.8 mg/dL (8.5-10.1); CHLORIDE 111 mmol/L (98-107); CREATININE 0.53 mg/dL (0.55-1.02)
[2017-10-11 06:28] LABS: ALKALINE PHOSPHATASE 227 U/L (45-117); BILIRUBIN,TOTAL 1.3 mg/dL (0.2-1.0); TOTAL PROTEIN 5.3 g/dL (6.4-8.2)
[2017-10-11 06:32] LABS: MD YES
[2017-10-11 06:45] VITALS: BP 138/86
[2017-10-11] MEDS: ACETAMINOPHEN 325 MG TABLET PO PRN ×2 (07:56→20:51)
[2017-10-11 08:25] LABS: <PLATELET ESTIMATE> ADEQUATE; <PLT MORPHOLOGY> NORMAL PLT MORPH; ANISOCYTOSIS 1+; BAND#(MANUAL) 0.04 x10^3/uL; BANDS%(MANUAL) 2 % (0-7); LYMPHS% (MANUAL) 10 % (22-44); POLYCHROMASIA 1+; SEG#(MANUAL) 1.76 x10^3/uL (1.8-6.8); SEGS% (MANUAL) 88 % (42-75)
[2017-10-11] MEDS: ALLOPURINOL 300 MG TABLET PO SCH ×2 (09:02→22:08)
[2017-10-11] MEDS: FLUCONAZOLE 200 MG TABLET PO SCH (11:15)
[2017-10-11] MEDS: VALACYCLOVIR 500MG TABLET PO SCH (11:15)
[2017-10-11] MEDS: LEVOFLOXACIN 500 MG TABLET PO SCH (11:15)
[2017-10-11 13:28] VITALS: BP 108/66
[2017-10-11 18:54] VITALS: BP 119/72
[2017-10-12] MEDS ORDERED: ONDA8TAB9 PO (03:00)
[2017-10-12] MEDS ORDERED: LEVO500T47 PO (03:00)
[2017-10-12] MEDS ORDERED: VALA500T4 PO (03:01)
[2017-10-12] MEDS ORDERED: FLUC200T PO (03:02)
[2017-10-12] MEDS ORDERED: Dexamethasone (03:06)
[2017-10-12] MEDS: ONDANSETRON 2MG/ML, 2ML IVPush PRN (03:48)
[2017-10-12 03:52] VITALS: BP 129/77
[2017-10-12 05:41] LABS: MEAN CORPUSCULAR HEMOGLOBIN 30.1 pg (27.0-34.8); MEAN CORPUSCULAR HGB CONC 33.8 g/dL (32.4-35.8); MEAN CORPUSCULAR VOLUME 88.9 fL (80-100); MEAN PLATELET VOLUME 8.1 fL (7.4-10.4); PLATELET COUNT 178 x10^3/uL (130-400); RED CELL DISTRIBUTION WIDTH 16.8 % (9.6-15.2)
[2017-10-12 05:45] LABS: ALANINE AMINOTRANSFERASE 82 U/L (12-78); ALBUMIN 2.6 g/dL (3.4-5.0); ANION GAP 6 mmol/L (5-15); CALCIUM 8.3 mg/dL (8.5-10.1); CHLORIDE 108 mmol/L (98-107); CREATININE 0.58 mg/dL (0.55-1.02)
[2017-10-12 05:47] LABS: ALKALINE PHOSPHATASE 207 U/L (45-117); BILIRUBIN,TOTAL 1.5 mg/dL (0.2-1.0); TOTAL PROTEIN 5.4 g/dL (6.4-8.2)
[2017-10-12 06:11] LABS: MD YES
[2017-10-12 06:14] LABS: LYMPH#(MANUAL) 0.35 x10^3/uL (1-3.4); LYMPHS% (MANUAL) 16 % (22-44); MONOS#(MANUAL) 0.02 x10^3/uL (0.3-2.7); MONOS% (MANUAL) 1 % (2-9); SEG#(MANUAL) 1.83 x10^3/uL (1.8-6.8); SEGS% (MANUAL) 83 % (42-75)
[2017-10-12 06:15] LABS: <PLATELET ESTIMATE> ADEQUATE; <PLT MORPHOLOGY> NORMAL PLT MORPH; ANISOCYTOSIS 1+; POLYCHROMASIA 1+
[2017-10-12 06:40] VITALS: BP 118/71
[2017-10-12] MEDS: ACETAMINOPHEN 325 MG TABLET PO PRN (09:07)
[2017-10-12] MEDS: LEVOFLOXACIN 500 MG TABLET PO SCH (10:22)
[2017-10-12] MEDS: ALLOPURINOL 300 MG TABLET PO SCH (10:22)
[2017-10-12] MEDS: VALACYCLOVIR 500MG TABLET PO SCH (10:22)
[2017-10-12] MEDS: FLUCONAZOLE 200 MG TABLET PO SCH (10:22)
[2017-10-12] MEDS: ONDANSETRON ODT 4 MG PO PRN (12:17)
[2017-10-17] MEDS ORDERED: DEXAMETHASONE 4 MG TABLET PO SCH (10:30)
== END 2017-10-12 12:28 | disposition home or self-care (01) | DRG 834 ==
LOC: ED 15:01 → EDIP 19:25 → 3NW 20:58
PROVIDERS: ADMIT Internal Medicine; ATTEND Hospitalist
PROC: 07DR3ZX Extraction of Iliac Bone Marrow, Percutaneous Approach, Diagnostic (ICD-10-PCS; 2017-09-29)
PROC: 30233R1 Transfusion of Nonautologous Platelets into Peripheral Vein, Percutaneous Approach (ICD-10-PCS; 2017-10-06)
PROC: 02HV33Z Insertion of Infusion Device into Superior Vena Cava, Percutaneous Approach (ICD-10-PCS; 2017-10-06)
PROC: B5181ZA Fluoroscopy of Superior Vena Cava using Low Osmolar Contrast, Guidance (ICD-10-PCS; 2017-10-06)
PROC: B548ZZA Ultrasonography of Superior Vena Cava, Guidance (ICD-10-PCS; 2017-10-06)
PROC: 009U3ZX Drainage of Spinal Canal, Percutaneous Approach, Diagnostic (ICD-10-PCS; principal; 2017-10-09)
PROC: B01B1ZZ Fluoroscopy of Spinal Cord using Low Osmolar Contrast (ICD-10-PCS; 2017-10-09)
DX: C91.00 Acute lymphoblastic leukemia not having achieved remission (principal); D65 Disseminated intravascular coagulation [defibrination syndrome]; E43 Unspecified severe protein-calorie malnutrition; I82.0 Budd-Chiari syndrome; K72.00 Acute and subacute hepatic failure without coma; B17.9 Acute viral hepatitis, unspecified; D61.818 Other pancytopenia; E87.1 Hypo-osmolality and hyponatremia; N39.0 Urinary tract infection, site not specified; C85.90 Non-Hodgkin lymphoma, unspecified, unspecified site; D73.5 Infarction of spleen; Z68.35 Body mass index [BMI] 35.0-35.9, adult; K59.00 Constipation, unspecified; K75.4 Autoimmune hepatitis; L29.9 Pruritus, unspecified; N23 Unspecified renal colic; T45.1X5A Adverse effect of antineoplastic and immunosuppressive drugs, initial encounter; E83.52 Hypercalcemia; Z90.49 Acquired absence of other specified parts of digestive tract; Z90.710 Acquired absence of both cervix and uterus
CPT/HCPCS: 36415; 36561; 38222; 62270; 74177; 74183; 76937; 77001; 77012; 80053; 80074; 80307; 81001; 82248; 83540; 83550; 83690; 83735; 84100; 84550; 85025; 85060; 85097; 85384; 85610; 86308; 86644; 86645; 86850; 86900; 87086; 88108; 88305; 88311; 88313; 93306; 99156; 99157; 99285; A9585; C1894; J1100; J2250; J2405; J3010; J3490; J9070; J9209; Q0162; Q9967; C1788; J0780; J1642; J1720; J2310; J7030; J7050; J9000; J9370; P9037; Q0163; Q0177

== ENCOUNTER 2017-10-16 06:26 | Day surgery (SDC) | payer OTHER ==
[~2017-10-16] VITALS: Ht 175.3 cm; Wt 103.0 kg
[~2017-10-16 06:26] MED LIST: Dexamethasone; FLUC200T PO; LEVO500T47 PO; ONDA8TAB9 PO; VALA500T4 PO
[2017-10-16 07:25] VITALS: BP 118/82
[2017-10-16] MEDS ORDERED: LIDOCAINE-MPF 1%, 2ML ONE ×2 (07:42→07:43)
[2017-10-16] MEDS ORDERED: CYTARABINE/PF 100 MG in SODIUM CHLORIDE 0.9% 4 ML IT ONE (09:00)
== END 2017-10-16 12:07 ==
LOC: OUT 06:26
PROVIDERS: ATTEND Specialist
DX: C91.00 Acute lymphoblastic leukemia not having achieved remission (principal); D64.9 Anemia, unspecified; D70.9 Neutropenia, unspecified; Z88.8 Allergy status to other drugs, medicaments and biological substances
CPT/HCPCS: 62270; 88108; J3490; J9100